=== PATIENT | male | born 1950 | race Caucasian/White ===

== ENCOUNTER → 2017-06-10 | Outpatient (CLI) | payer MEDICARE ==
--- NOTE | 2017-06-10 13:03 | RADIOLOGY REPORT PS360 ---
CTA -CHEST COMPARISON: CT angiogram of the chest 03/19/2012 HISTORY: Shortness of breath bilateral leg weakness and cramping TECHNIQUE: Multiaxial scans were obtained from the thoracic inlet the hemidiaphragms after injection of IV contrast. Sagittal and coronal reformats were evaluated as well. FINDINGS: The lung negron are fairly well-expanded. There is excellent vascular opacification and there is no CT evidence of pulmonary emboli. There is generalized cardiomegaly with mild aortic tortuosity. There has been a slight overall increase in cardiac size since the previous study in March 2012. There is prominent coronary artery calcification is noted previously. The lung negron are free of active infiltrate. There is a small to moderate amount of fluid in the major fissure on the left side. There is minimal pleural fluid in the left posterior gutter. The superior mediastinum and dirk are grossly normal with no abnormal lymphadenopathy noted. IMPRESSION: No evidence of PE, moderate generalized cardiomegaly with interval increase in cardiac size since the previous study and I suspect possibly compensated or resolving congestive heart failure with small amount of pleural fluid remaining in the major fissure left side and at the left posterior gutter
== END ==
LOC: RAD 11:41
DX: R06.00 Dyspnea, unspecified (principal); M79.604 Pain in right leg; M79.605 Pain in left leg; M79.661 Pain in right lower leg; M79.662 Pain in left lower leg